=== PATIENT | male | born 1965 | race African-American/Black ===

== ENCOUNTER 2023-05-07 17:36 | Emergency (ER) | payer OTHER, SELFPAY ==
--- NOTE | ~2023-05-07 | CT_ITS ---
EXAMINATION: CT abdomen pelvis wo con DATE: 05/07/2023 18:49 INDICATION: Left flank pain TECHNIQUE: Computed tomography (CT) of the abdomen and pelvis was performed without intravenous contr ast. Automated exposure control and iterative reconstruction technique were employed. The dose-length product was 315.14 mGy-cm. COMPARISON: None FINDINGS: Mild dependent atelectasis in the bilateral lower lobes. Heart size is normal. No pericardial or pleu ral effusion. Liver, gallbladder, spleen, pancreas, bilateral adrenal glands and kidneys are normal. No urolithiasis. Moderate to large amount of stool throughout the colon with 7 similar ball of stool at rectum suggestive of constipation with fecal impaction. There is moderate colonic diverticulosis w ith a sigmoid predominance. There is no adjacent inflammatory change to suggest diverticulitis. Smal l bowel and appendix are normal. Bladder is normal. No free intraperitoneal gas or fluid. There is di ffuse mesenteric and body wall edema. No pathologically enlarged abdominal or pelvic lymphadenopathy. IMPRESSION: 1. Moderate to large amount of colonic stool 7 similar ball of stool at rectum suggestive of constipa tion with fecal impaction. 2. Nonspecific diffuse mild mesenteric and body wall edema. Reviewed, dictated and finalized at location A. IMPRESSION: 1. Moderate to large amount of colonic stool 7 similar ball of stool at rectum suggestive of constipation with fecal impaction. 2. Nonspecific diffuse mild mesenteric and body wall edema.
[2023-05-07 17:39] VITALS: BP 164/89; PULSE 78; RESP 16; TEMP 36.8; O2SAT 96
--- NOTE | 2023-05-07 18:09 | ED.BACK ---
HPI - Back Pain/Injury General Chief Complaint: Back Pain/Injury Stated Complaint: back pain Time Seen by Provider: 05/07/23 17:51 Source: patient Mode of arrival: ambulatory Limitations: no limitations History of Present Illness HPI Narrative: Patient is a 58 y/o male who presents to the ED with c/o L flank pain. Patient reports having pain in his left flank/lower back for the last few days. He denies any recent heavy lifting, strenuous activity, abnormal activity. Pain is worse with movement, twisting, sitting upright. He states the pain at times takes his breath away. He has not tried anything for the pain. He was seen at [facility] yesterday and had negative lumbar spine x-rays. He was prescribed Flexeril and lidocaine patches, but has not picked these up from the pharmacy. He denies radiation of the pain into his abdomen or down his leg. Denies nausea, vomiting, dysuria, hematuria, incontinence, fevers, SOB, numbness, tingling, saddle anesthesia. Denies history of kidney stones. Related Data Allergies Allergy/AdvReac Type Severity Reaction Status Date / Time No Known Allergies Allergy Verified 05/07/23 17:53 Review of Systems Review of Systems: CONSTITUTIONAL: Denies fever, chills, or sweats. CARDIOVASCULAR: Denies chest pain. RESPIRATORY: Denies dyspnea. GASTROINTESTINAL: Denies abdominal pain, nausea, vomiting, or diarrhea. GENITOURINARY: Denies dysuria or hematuria. SKIN: Denies rash or itching. MUSCULOSKELETAL: See HPI. NEUROLOGIC: Denies headache, numbness, or weakness. All systems reviewed & are unremarkable except as noted in HPI and below Exam Narrative: GENERAL: Well appearing, well-nourished, non-toxic, in no acute distress. HEAD: Normocephalic, atraumatic. NECK: Supple. No adenopathy, no masses. RESPIRATORY: Airway patent, respirations nonlabored. Clear to auscultation bilaterally, no rales, rhonchi, wheezing. No distress or splinting. CARDIOVASCULAR: Regular rate and rhythm without murmurs, rubs, or gallops. Radial pulses 2+ and equal bilaterally. ABDOMINAL: Soft, no tenderness throughout abdomen, nondistended, no hepatosplenomegaly. Normoactive BS. MUSCULOSKELETAL: Moves all extremities. Strength/ROM intact without gross deformities. No midline thoracic or lumbar spinal tenderness. TTP throughout L flank region/L lumbar paraspinal musculature. No palpable bony deformities along rib cage. SKIN: Warm, dry, normal color. No rashes. NEURO: A&O X3. Speech clear. Cranial nerves II-XII grossly intact. Steady gait. No ataxic movements. PSYCHIATRIC: Appropriate mood and affect. Normal interaction. Course Vital Signs Vital signs: Vital Signs Temperature 98.3 F 05/07/23 17:39 Pulse Rate 78 05/07/23 17:39 Respiratory Rate 16 05/07/23 17:39 Blood Pressure 164/89 H 05/07/23 17:39 Pulse Oximetry 96 05/07/23 17:39 Oxygen Delivery Room Air 05/07/23 17:39 Temperature 98.3 F 05/07/23 17:39 Pulse Rate 58 L 05/07/23 19:16 Respiratory Rate 18 05/07/23 19:16 Blood Pressure 180/109 H 05/07/23 19:16 Pulse Oximetry 100 05/07/23 19:16 Oxygen Delivery Room Air 05/07/23 17:39 MDM - Back Pain/Injury MDM Narrative Medical decision making narrative: Patient presented to ED with 2-day history of left flank pain. Patient has not tried anything for pain prior to arrival. Seen at outside facility yesterday and prescribed Flexeril however he did not pick these up from the pharmacy. No midline spinal tenderness, neurologic deficits, palpable spinal or bony deformities. CT abdomen pelvis obtained to rule out kidney stone, showing constipation with fecal impaction. No ureterolithiasis. Discussed imaging findings with patient. He reports his last BM was yesterday. Denies frequent issues with constipation. Discussed likelihood of musculoskeletal back pain and incidental finding of constipation. Discussed constipation management at home vs performing therapies her
[2023-05-07 19:16] VITALS: BP 180/109; PULSE 58; RESP 18; O2SAT 100
--- NOTE | 2023-05-07 19:17 | PC.NURSE ---
Assumed care of pt from MELANIE Correa at this time.
[2023-05-07] MEDS: ACETAMINOPHEN 500 MG TABLET 1000 MG PO (19:21)
[2023-05-07] MEDS: CYCLOBENZAPRINE HCL 5 MG TABLET PO (20:00)
[2023-05-07] MEDS: KETOROLAC 30 MG/ML VIAL (*BKC) IM (20:01)
[2023-05-07 20:04] LABS: Basophils Percent Auto 0.5 % (0.2-1.2); Eosinophils Absolute Auto 0.1 K/mm3 (0-0.3); Eosinophils Percent Auto 1.5 % (0-4.4); Hematocrit 33.2 % (42.0-52.0); Hemoglobin 10.6 g/dL (14.0-18.0); Immature Granulocyte Absolute 0.03 K/mm3 (0.00-0.031); Immature Granulocyte Percent A 0.4 % (0-0.5); Lymphocytes Percent Auto 18.7 % (18.3-44.2); Mean Corpuscular HGB Conc 31.9 g/dl (32-36); Mean Corpuscular Hemoglobin 28.8 pg (26-34); Mean Corpuscular Volume 90.2 fl (80-100); Mean Platelet Volume 9.6 fl (7.4-10.4); Monocytes Absolute Auto 0.8 K/mm3 (0.1-0.6); Neutrophils Absolute Auto 5.6 K/mm3 (1.3-6.7); Neutrophils Percent Auto 68.9 % (45.5-73.1); Platelet Count Result 304 k/mm3 (150-375); Red Blood Count 3.68 M/mm3 (4.6-6.20); Red Cell Distribution Width 13.4 % (11.5-14.5)
[2023-05-07 20:11] LABS: Appearance Urine Clear (Clear); Bacteria Urine None Seen /hpf; Bilirubin Urine Negative (Negative); Blood Urine Negative (Negative); Color Urine Yellow (Yellow); Glucose Urine UA Negative (Negative); Ketones Urine Negative (Negative); Leukocyte Esterase Ur Negative LEU/UL (Negative); Nitrate Urine Negative (Negative); Non Pathogenic Casts 0-2; Protein Urine 1+ mg/dL (Negative); RBC Urine 0-2 /hpf (0-2); Specific Grav Ur 1.021 (1.001-1.035); Squamous Epithelial Cell Urine None seen /hpf (Few); WBC Urine 0-5 /hpf; pH Urine 6.5 (5.0-9.0)
[2023-05-07 20:15] LABS: Alanine Aminotransferase 34 U/L (6-50); Albumin Level 3.9 g/dL (3.5-5.1); Alkaline Phosphatase 64 U/L (38-126); Anion Gap 6 mmol/L (8-16); Aspartate Amino Transferase 27 U/L (17-59); Bilirubin,Total 0.3 mg/dL (0.2-1.3); Blood Urea Nitrogen 31 mg/dL (9-20); Calcium 8.8 mg/dL (8.4-10.2); Carbon Dioxide 27 mmol/L (22-30); Chloride 108 mmol/L (98-107); Estimated CRCL calculation 36 ml/min; Estimated Glomerular Filt Rate 36; Glucose 81 mg/dL (65-110); Sodium 141 mmol/L (137-145)
--- NOTE | 2023-05-07 20:16 | PC.NURSE ---
This RN went into pt room to do Soap suds enema. When explaining procedure to pt he decided he did not want to have enema completed. This RN explained potential benefits to pt. Pt decided he would wait. This RN notified Yarely STEVE.
[2023-05-07 20:23] LABS: Add Urine Microscopic? YES
== END 2023-05-07 20:57 | disposition home or self-care (01) ==
PROVIDERS: Emergency Provider Physician Assistant
DX: S39.012A Strain of muscle, fascia and tendon of lower back, initial encounter (principal); K59.00 Constipation, unspecified; N18.9 Chronic kidney disease, unspecified; M54.6 Pain in thoracic spine; X58.XXXA Exposure to other specified factors, initial encounter
CPT/HCPCS: 36415; 74176; 80053; 81001; 85025; 96372; 99284; A9270; J1885

== ENCOUNTER 2023-05-19 12:30 | Observation (INO) | payer OTHER, SELFPAY ==
[2023-05-19] VITALS (9 sets, daily range): BP systolic 125–155; BP diastolic 88–103; PULSE 59–76; RESP 11–16; TEMP 36.4–36.5; O2SAT 98–100; BMI 21.2; BMI 21.3
--- NOTE | ~2023-05-19 | XR_ITS ---
XR chest 1V 05/19/2023 13:58 Indication: Syncope. Procedure: AP view of the chest Comparison: No prior studies for comparison. Findings: Borderline heart size. No focal air space disease, pulmonary edema, pleural effusion or mayo pected pneumothorax. No acute osseous abnormality. Impression: 1: No acute cardiopulmonary disease. Reviewed, dictated and finalized at location L. Impression: 1: No acute cardiopulmonary disease.
--- NOTE | ~2023-05-19 | US_ITS ---
EXAMINATION: US renal BI DATE: 05/20/2023 10:15 INDICATION: Increased creatinine. TECHNIQUE: Multiple ultrasound grayscale images of the kidneys were obtained. COMPARISON: CT abdomen and pelvis 05/07/2023 FINDINGS: The right kidney measures 9.9 x 4.2 x 5.6 cm. The left kidney measures 10.2 x 4.6 x 4.7 cm. The kidne ys demonstrate normal parenchymal echogenicity. There is no hydronephrosis. The bladder is normal. IMPRESSION: 1. Normal kidneys. No hydronephrosis. Reviewed, dictated and finalized at location E.
--- NOTE | ~2023-05-19 | CT_ITS ---
EXAMINATION: CTA chest PE protocol DATE: 05/19/2023 14:08 CDT INDICATION: Syncope. TECHNIQUE: Computed tomographic angiography (CTA) of the chest was performed with 100 mL Omnipaque-35 0 intravenous contrast. The dose-length product was 563.50 mGy-cm. Maximum intensity projection 3D-re constructions of the aorta and other arteries were constructed by the technologist on a separate work station. Automated exposure control and iterative reconstruction technique were employed. COMPARISON: None. FINDINGS: Study is technically adequate without evidence for pulmonary embolism. No evidence for aort ic dissection. No thoracic lymphadenopathy. No significant pleural or pericardial effusion. Heart siz e is normal. There is calcified granuloma in the left mid thorax. No endobronchial lesions. No pneumo thorax. There is dependent atelectasis. No focal pneumonia. Moderate thoracic spondylosis. IMPRESSION: 1. No acute cardiopulmonary disease. No evidence for pulmonary embolism. Reviewed, dictated and finalized at location L.
--- NOTE | ~2023-05-19 | XR_ITS ---
XR lumbar spine 2-3V 05/19/2023 13:58 Indication: Low back pain Procedure: 3 views lumbar spine Comparison: No prior studies for comparison. Findings: Vertebral body heights are maintained. No fracture, subluxation or dislocation. There is gr jami 1 degenerative spondylolisthesis at L4-5. There is mild facet hypertrophy at L4-5 and L5-S1. Impression: 1: Mild lumbar spondylosis with grade 1 degenerative spondylolisthesis at L4-5. Reviewed, dictated and finalized at location L. Impression: 1: Mild lumbar spondylosis with grade 1 degenerative spondylolisthesis at L4-5.
--- NOTE | ~2023-05-19 | MR_ITS ---
EXAMINATION: MR brain/brain stem wo/w con DATE: 05/21/2023 08:55 INDICATION: syncope, possible seizure TECHNIQUE: Magnetic resonance imaging (MRI) of the brain and brainstem was performed without and with 15 mL MultiHance intravenous contrast. Sequences included sagittal and axial T1-weighted SE, axial d iffusion-weighted FS EPI ASSET, axial T2*-weighted GRE, axial T2-weighted FLAIR Propeller, and axial T2-weighted Propeller. Postcontrast axial and coronal T1-weighted SE was obtained. Apparent diffusion coefficient (ADC) maps were created. COMPARISON: CT brain 05/19/2023. FINDINGS: No abnormal restricted diffusion to suggest acute ischemic infarct. No MRI evidence of hemorrhage or extra-axial collection. No suspicious foci of susceptibility to suggest prior intraparenchymal hemorr tito. Scattered foci of white matter hyperintensity, likely representing mild small vessel ischemic d isease. No evidence of advanced or lobar predominant parenchymal volume loss. The basilar cisterns ar e patent. Flow voids are preserved. Ethmoid and maxillary mucosal thickening. Small retention cyst/po lyp in the right maxillary sinus. Globes and orbital contents are within normal limits. IMPRESSION: No acute intracranial process. Reviewed, dictated and finalized at location K.
--- NOTE | ~2023-05-19 | CT_ITS ---
EXAMINATION: CT brain wo con DATE: 05/19/2023 13:50 INDICATION: Syncope. Head injury. TECHNIQUE: Computed tomography (CT) of the head was performed without intravenous contrast. The mA wa s adjusted according to patient size. Iterative reconstruction technique was employed. The dose-lengt h product was 605.33 mGy-cm. COMPARISON: None FINDINGS: There are scattered areas of low attenuation in the cerebral white matter. There is no intr acranial hemorrhage, acute infarction, or abnormal intracranial mass lesion. The ventricles are marlene l in size. There is mucosal thickening in the paranasal sinuses. The orbits are normal. The mastoid a ir cells are normal. IMPRESSION: 1. Moderate nonspecific cerebral white matter disease, which likely represents chronic small vessel i schemic disease. Reviewed, dictated and finalized at location E. IMPRESSION: 1. Moderate nonspecific cerebral white matter disease, which likely represents chronic small vessel ischemic disease.
--- NOTE | ~2023-05-19 | US_ITS ---
US venous doppler [facility] DATE: 05/21/2023 09:20 INDICATION: Positive d-dimer. TECHNIQUE: Real-time and color flow imaging and Doppler analysis of the veins of the lower extremitie s COMPARISON: None FINDINGS: The greater saphenous veins are patent. There is spontaneous and phasic flow and normal aug mentation and color flow signal and normal compression of the deep veins of both lower extremities. IMPRESSION: No evidence of deep venous thrombosis of the lower extremities Reviewed, dictated and finalized at Location A. Reviewed, dictated and finalized at location A.
--- NOTE | 2023-05-19 12:43 | ECG_ITS ---
Measurements Intervals [place] Rate: 64 P: 15 IN: 161 QRS: 24 QRSD: 89 T: 3 QT: 413 QTc: 429 Interpretive Statements SINUS RHYTHM EARLY REPOLARIZATION NO PREVIOUS ECG AVAILABLE FOR COMPARISON Electronically Signed On 05-19-2023 13:01:57 CDT by Aspen Teran M.D.
--- NOTE | 2023-05-19 12:44 | ED.SYNCOPE ---
HPI - Syncope General Chief Complaint: Syncope Stated Complaint: STEMI Time Seen by Provider: 05/19/23 12:42 History of Present Illness HPI narrative: 58-year-old male with a history of hypertension and coronary artery disease with a HI in 2013 presented emergency department for evaluation after having a syncopal episode. Patient was standing in line at a convenience store when he felt warm lightheaded and dizzy and had a syncopal episode. Bystanders state the patient was down for approximately 1 minute. Patient complained of head and tailbone pain. EKG obtained by EMS was initially concerning for STEMI by EMS and a code STEMI was called by EMS. Upon arrival to the ED our EKG appeared to be more early repolarization and patient was pain-free and had no associated shortness of breath. Patient does complain of head pain and tailbone pain but denies any other complaints. Patient denies any alcohol but states he does smoke marijuana. 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 Related Data Allergies Allergy/AdvReac Type Severity Reaction Status Date / Time No Known Allergies Allergy Verified 05/19/23 12:48 Review of Systems Review of Systems: All systems reviewed & are unremarkable except as noted in HPI and below PMFSH Social History Social History Alcohol intake: never Substance use: current Substance use type: marijuana Lack of Transportation: YES Lack of Food: Often True Current Housing: I Do Not Have Housing Concerned About Future Housing: YES Difficulty Paying Gas/Electric Bills: YES Difficulty Paying for Meds: No Currently Unemployed: No Education: High School Diploma/GED Difficulty w/ Childcare or Family Care: No Gender identity (if verbalized by the patient): Male Sexual Orientation (if Verbalized by the Patient): Straight or Heterosexual Spiritual care concerns: No Exam Narrative: APPEARANCE: Well appearing, no pain, no distress, well-nourished. HEAD: normocephalic, atraumatic. EYES: PERRLA/EOMI, conjunctivae clear. NOSE: Normal no drainage EARS:TMS clear with good light reflex. THROAT: Pharynx clear, no exudate. NECK: Supple. No adenopathy, no masses. RESPIRATORY: Airway patent, respirations nonlabored. Clear to auscultation bilaterally, no rales, rhonchi, wheezing. CARDIOVASCULAR: Regular rate and rhythm without murmurs rubs or gallops. ABDOMINAL: Soft, nontender, nondistended, normal bowel sounds MUSCULOSKELETAL: Moves all extremities. Strength/ROM intact, No edema, No calf tenderness. NEURO: Alert. Cranial nerves II through XII intact. Grossly intact SKIN: Warm, dry. Normal Color Course Course Emergency Course: 58-year-old male present emergency department for evaluation for a syncopal episode. Patient was initially thought to be a STEMI but EKG at our system showed no evidence of acute STEMI and the code STEMI was canceled. Patient was afebrile with no leukocytosis and a hemoglobin of 10.8. Patient's D-dimer was elevated. ABG showed no significant abnormalities. CMP showed no significant abnormalities. Urine had no evidence of infection. Patient was positive for amphetamines and for cannabinoids. CTA chest showed no evidence of pulmonary embolism. CT head was negative for acute intracranial abnormality. I discussed case with the hospitalist and patient was excepted for further evaluation of these frequent syncopal episodes Vital Signs Vital signs: Vital Signs Temperature 97.7 F 05/19/23 12:36 Pulse Rate 65 05/19/23 12:36 Respiratory Rate 11 L 05/19/23 12:36 Blood Pressure 127/93 H 05/19/23 12:36 Pulse Oximetry 100 05/19/23 12:36 Oxygen Delivery Room Air 05/19/23 12:36 Temperature 97.5 F L 05/19/23 20:05 Pulse Rate 72 05/19/23 20:05 Respiratory Rate 16 05/19/23 20:05 Blood Pressure 133/92 H 05/19/23 20:05 Pulse Oximetry 100 05/19/23 20:05 Oxygen Delivery Room Air 05/19/23 12
[2023-05-19 13:01] LABS: Basophils Percent Auto 0.5 % (0.2-1.2); Eosinophils Absolute Auto 0.2 K/mm3 (0-0.3); Eosinophils Percent Auto 2.4 % (0-4.4); Hematocrit 33.7 % (42.0-52.0); Hemoglobin 10.8 g/dL (14.0-18.0); Immature Granulocyte Absolute 0.02 K/mm3 (0.00-0.031); Immature Granulocyte Percent A 0.3 % (0-0.5); Lymphocytes Absolute Auto 1.35 K/mm3 (0.9-3.2); Mean Corpuscular Hemoglobin 28.3 pg (26-34); Mean Corpuscular Volume 88.2 fl (80-100); Mean Platelet Volume 9.9 fl (7.4-10.4); Monocytes Absolute Auto 0.5 K/mm3 (0.1-0.6); Monocytes Percent Auto 8.6 % (2.6-8.5); Neutrophils Absolute Auto 4.1 K/mm3 (1.3-6.7); Neutrophils Percent Auto 66.2 % (45.5-73.1); Platelet Count Result 241 k/mm3 (150-375); Red Blood Count 3.82 M/mm3 (4.6-6.20); Red Cell Distribution Width 13.8 % (11.5-14.5); White Blood Count 6.1 K/mm3 (4.5-10.0)
[2023-05-19 13:06] LABS: Alveolar/Arterial O2 Gradient 30.8 mmHg; Fractional Inspired Oxygen 21 %; HCO3 ABG 23.3 mEq/l (22.0-26.0); Oxygen Content ABG 14.9 %vol (16.0-22.0); Oxygen Saturation ABG 95.2 % (95.0-100.0); Oxyhemoglobin 92.4 % THb (90.0-100.0); PCO2 ABG 37.3 mmHg (35.0-45.0); PO2 ABG 74.3 mmHg (80.0-100.0); PO2 FiO2 Ratio Arterial Blood 3.54 %; Total Hemoglobin 11.4 g/dL (12.0-18.0); pH ABG 7.413 (7.350-7.450)
[2023-05-19 13:08] LABS: Site Drawn RIGHT RADIAL
[2023-05-19 13:09] LABS: Device ROOM AIR; Modified Allen's Test Pass
[2023-05-19 13:13] LABS: Prothrombin Time 13.8 Seconds (11.1-14.7)
[2023-05-19 13:14] LABS: Alanine Aminotransferase 23 U/L (6-50); Albumin Level 4.3 g/dL (3.5-5.1); Alkaline Phosphatase 62 U/L (38-126); Anion Gap 8 mmol/L (8-16); Aspartate Amino Transferase 24 U/L (17-59); Bilirubin,Total 0.5 mg/dL (0.2-1.3); Blood Urea Nitrogen 33 mg/dL (9-20); Calcium 9.1 mg/dL (8.4-10.2); Carbon Dioxide 24 mmol/L (22-30); Chloride 106 mmol/L (98-107); Estimated Glomerular Filt Rate 28; Glucose 78 mg/dL (65-110); Lactic Acid Reflex 1.1 mmol/L (0.7-2.0); Sodium 138 mmol/L (137-145)
[2023-05-19 13:15] LABS: Magnesium 2.1 mg/dL (1.6-2.3); Partial Thromboplastin Time 32.5 SECONDS (22.3-36.8)
[2023-05-19 13:17] LABS: D Dimer 2.29 ug/mL (<0.48)
[2023-05-19 13:26] LABS: NT Pro B Type Natriuretic Pept 153 pg/mL (19.9-100)
[2023-05-19 13:45] LABS: Thyroid Stimulating Hormone Reflex 0.779 uIU/mL (0.465-4.68)
[2023-05-19 14:27] LABS: Appearance Urine Clear (Clear); Bacteria Urine None Seen /hpf; Bilirubin Urine Negative (Negative); Blood Urine Negative (Negative); Color Urine Yellow (Yellow); Glucose Urine UA Negative (Negative); Ketones Urine Negative (Negative); Leukocyte Esterase Ur Negative LEU/UL (Negative); Nitrate Urine Negative (Negative); Non Pathogenic Casts 0-2; Protein Urine 1+ mg/dL (Negative); RBC Urine 0-2 /hpf (0-2); Squamous Epithelial Cell Urine None seen /hpf (Few); WBC Urine 0-5 /hpf; pH Urine 5.5 (5.0-9.0)
[2023-05-19 14:29] LABS: Add Urine Microscopic? YES
[2023-05-19] MEDS: SODIUM CHLORIDE 0.9% IV 500 ML 999 ML IV CONT (15:05)
[2023-05-19 15:15] LABS: Barbiturate Screen Urine Negative (Negative); Benzodiazepines Screen Urine Negative (Negative)
[2023-05-19 15:24] LABS: Cannabinoid Screen Urine Positive (Negative); Cocaine Screen Urine Negative (Negative); Methadone Screen Urine Negative (Negative); Opiate Screen Urine Negative (Negative); Phencyclidine Screen Urine Negative (Negative)
[2023-05-19 15:49] LABS: Amphetamine Screen Urine Positive (Negative)
[2023-05-19 16:26] LABS: Troponin I < 0.012 ng/mL (0.000-0.034)
--- NOTE | 2023-05-19 20:43 | ADMGEN ---
This patient, Lorenzo Ochoa, was admitted to IMU Room 201-01. Patient/family oriented to hospital policies and general routines including ID bracelet, bed and alarms, visiting hours, pain management, procedures, bathroom and other care routines, personal items, smoking policy, room service/diet, and visiting hours. Information on how to activate the Rapid Response Team has been discussed. Patient/Family are encouraged to report perceived risks to care and to ask questions if they do not understand what they are told or what they should do.
--- NOTE | 2023-05-19 22:58 | PM.IMHP ---
H&P: HPI History of Present Illness Date/Time: 05/19/23 22:58 Chief Complaint: Syncope Narrative: 58-year-old male presents here after syncopal event with past medical history of WI with 1 cardiac stent placed, CAD, substance abuse, CKD, and hypertension. Patient reports that he was at the grocery store today when he began to feel hot. Patient's last memory is going backwards. Syncopal event was witnessed by bystanders. +LOC -estimated by witnesses to have lasted approximately 1 minute. At EMS arrival patient was complaining of headache and tailbone pain. Initial EKG concerning for STEMI, code STEMI called by EMS prior to arrival. EKG was obtained promptly after arrival to the ED, gravity prospecting observer helper red EKG as early repolarization, not STEMI. Patient also denied chest pain, palpitations, shortness of breath. No recent illness. No complaints of nausea, vomiting, diarrhea, fever, or chills. Patient does report an increased amount of stress due to poor financial situation. Patient is currently living off of disability. His electric was caught off recently and water was cut off this morning. He does report a decrease in p.o. intake due to not being able to afford food. Last intake was yesterday evening at 6:00 p.m., nothing today. Discussed urine drug screen with patient. Patient sources marijuana use, but continues to deny and phentermine use. He denies history of ADHD or stimulant medication. Patient does have history of substance abuse and used to use meth, reports he has not used it in a long time. Patient also reporting depressed mood. Made statement that he wishes things would be over. He denies suicidal plan. He reports no access to firearms. Review of Systems Review of Systems: All systems reviewed & are unremarkable except as noted in HPI and below [facility] Past Medical History Medical History (Updated 05/20/23 @ 02:22 by Odette Vargas APRN) CAD (coronary artery disease) CKD (chronic kidney disease) Hypertension Myocardial infarction 2014 Polysubstance abuse Surgical History Surgical History (Updated 05/20/23 @ 02:19 by Odette Vargas APRN) History of heart artery stent History of inguinal hernia repair Right, mesh used Social History Social History (Updated 05/20/23 @ 02:37 by Odette E. Sam, WORKFORCE DEVELOPMENT ASSISTANT) Social History: Currently lives alone. Has alley tender. Surrogate decision maker: Steph alley tender. [phone]. If caregiver unavailable or on reachable, patient would like healthcare team to manage his care. Full code. Alcohol intake: never Substance use: current Substance use type: marijuana Lack of Transportation: YES Lack of Food: Often True Current Housing: I Do Not Have Housing Concerned About Future Housing: YES Difficulty Paying Gas/Electric Bills: YES Difficulty Paying for Meds: No Currently Unemployed: No Education: High School Diploma/GED Difficulty w/ Childcare or Family Care: No Gender identity (if verbalized by the patient): Male Sexual Orientation (if Verbalized by the Patient): Straight or Heterosexual Spiritual care concerns: No Meds Home Medications and Allergies Home Medications Medication Instructions Recorded Confirmed Type atorvastatin 80 mg tablet 80 mg PO HS 05/19/23 05/19/23 History calcitriol 0.25 mcg capsule 0.25 mcg PO DAILY 05/19/23 05/19/23 History clopidogrel 75 mg tablet 75 mg PO DAILY 05/19/23 05/19/23 History cyclobenzaprine 10 mg tablet 10 mg PO Q8H 05/19/23 05/19/23 History hydralazine 25 mg tablet 25 mg PO Q8H 05/19/23 05/19/23 History labetalol 200 mg tablet 200 mg PO BID 05/19/23 05/19/23 History lidocaine 5 % topical patch 1 patch transdermal DAILY 05/19/23 05/19/23 History losartan 25 mg tablet 25 mg PO DAILY 05/19/23 05/19/23 History nifedipine 90 mg tablet,extended 90 mg PO DAILY 05/19/23 05/19/23 History release 24 hr tamsulosin 0.4 mg capsule 0.4 mg PO DAILY 05/19/23 05/19/23 History Allergies A
[2023-05-20] VITALS (15 sets, daily range): BP systolic 142–158; BP diastolic 87–110; PULSE 65–93; RESP 16–18; TEMP 36.4–36.8; O2SAT 96–100
--- NOTE | 2023-05-20 | ECHO_ITS ---
Patient Info Name: Lorenzo Ochoa Age: 58 years : 1965 Gender: Male Ht: 74 in Wt: 166 lbs BSA: 1.98 m2 HR: 74 bpm BP: 158 / 110 mmHg Heart Rhythm: Sinus Rhythm Technical Quality: Good Exam Date: 05/20/2023 10:15 AM Exam Location: [facility] Pulmonary Patient Status: Inpatient Admit Date: 05/19/2023 Staff Ordering Physician: Alan Mejia MD Labor Relations Supervisor: Kim Mckeon RDCS Attending Provider: Alan Mejia MD Exam Type: CA echo doppler color flow Study Info Indications R55 - Syncope and collapse Complete two-dimensional, color flow and Doppler transthoracic echocardiogram is performed. Summary 1. Complete two-dimensional, color flow and Doppler transthoracic echocardiogram is performed. 2. Severe concentric left ventricular hypertrophy with vigorous systolic function and grade 1 diastolic noncompliance. 3. No significant valvular dysfunction identified. Left Ventricle Left ventricular chamber dimension is normal. Left ventricular systolic function is normal, estimated at 65-70%. There is severe concentric increased left ventricular wall thickness. The left ventricular diastolic function is grade I diastolic dysfunction. Right Ventricle Right ventricular chamber dimension is normal. Left Atria Left atrial chamber dimension is moderately enlarged. Right Atria Right atrial chamber dimension is normal. Aortic Valve The aortic valve is normal. Pulmonic Valve The pulmonic valve is normal. Mitral Valve The mitral valve has normal leaflets. Tricuspid Valve The tricuspid valve leaflets are normal. There is trace tricuspid valve regurgitation. Pericardium/Pleural The pericardium appears normal. Aorta The aortic root size at the sinus of Valsalva is normal. Left Ventricular Outflow Tract Name Value Normal LVOT 2D LVOT Diameter 2.1 cm LVOT Doppler LVOT Peak Gradient 6 mmHg LVOT Mean Gradient 3 mmHg LVOT VTI 20 cm LVOT VTI/AV VTI Ratio 0.8 LVOT Stroke Volume 67 ml LVOT CO 4.8 l/min LVOT CI 2.4 l/min/m2 Pulmonic Valve Name Value Normal RVOT Doppler RVOT Peak Gradient 2 mmHg PV Doppler PV Peak Gradient 5 mmHg Mitral Valve Name Value Normal MV Doppler MV Decel [place] 442 cm/s2 MV PHT 56 ms MV Area (PHT) 3.9 cm2 4.0-5.0 MV Diastolic Function
[2023-05-20] MEDS: ACETAMINOPHEN 325 MG TABLET 650 MG PO ×2 (00:34→08:33)
[2023-05-20] MEDS: hydrALAZINE HCL 25 MG TABLET PO ×4 (00:34→16:52)
[2023-05-20] MEDS: LACTATED RINGERS 1,000 ML 100 ML IV CONT ×3 (00:35→20:33)
[2023-05-20 04:41] LABS: Hematocrit 33.8 % (42.0-52.0); Hemoglobin 10.9 g/dL (14.0-18.0); Mean Corpuscular HGB Conc 32.2 g/dl (32-36); Mean Corpuscular Hemoglobin 28.2 pg (26-34); Mean Corpuscular Volume 87.6 fl (80-100); Mean Platelet Volume 9.9 fl (7.4-10.4); Platelet Count Result 239 k/mm3 (150-375); Red Blood Count 3.86 M/mm3 (4.6-6.20); Red Cell Distribution Width 13.8 % (11.5-14.5); White Blood Count 7.1 K/mm3 (4.5-10.0)
[2023-05-20 05:00] LABS: Anion Gap 7 mmol/L (8-16); Blood Urea Nitrogen 28 mg/dL (9-20); Carbon Dioxide 25 mmol/L (22-30); Chloride 105 mmol/L (98-107); Estimated CRCL calculation 36 ml/min; Estimated Glomerular Filt Rate 38; Glucose 102 mg/dL (65-110); Potassium 3.8 mmol/L (3.4-5.0); Sodium 137 mmol/L (137-145)
[2023-05-20 05:06] LABS: Iron 44 ug/dL (49-181)
[2023-05-20 05:16] LABS: Percent Iron Saturation 15 % (20-50)
[2023-05-20 06:06] LABS: Folic Acid 6.8 ng/mL (2.76->20)
[2023-05-20] MEDS: NIFEdipine 30 MG TAB.ER.24 90 MG PO (06:33)
[2023-05-20] MEDS: CLOPIDOGREL BISULFATE 75 MG TABLET PO (08:31)
[2023-05-20] MEDS: calcitrioL 0.25 MCG CAPSULE PO (08:31)
[2023-05-20] MEDS: TAMSULOSIN HCL 0.4 MG CAPSULE PO (08:31)
[2023-05-20] MEDS: LIDOCAINE 5% PATCH 1 PATCH TRANSDERM (08:31)
[2023-05-20] MEDS: ENOXAPARIN 30 MG/0.3 ML SYRINGE SUB-Q (08:31)
[2023-05-20] MEDS: LOSARTAN POTASSIUM 25 MG TABLET PO (09:21)
[2023-05-20] MEDS: LABETALOL HCL 100 MG TABLET 200 MG PO (09:21)
--- NOTE | 2023-05-20 11:16 | PC.NURSE ---
This patient, Lorenzo Ochoa, was transferred to [[id number] ] on 05/20/23 at 1115. Personal belongings sent with patient. Report given to [ Bárbara]. Appropriate documentation sent with patient.
--- NOTE | 2023-05-20 17:03 | PM.IMPN ---
Progress Note: A&P Assessment and Plan (1) Syncope and collapse: Code(s): R55 - Syncope and collapse Status: Acute Assessment and Plan: Patient had syncopal episode and was 'shaking' when unresponsive. Notes do not verify this but consider seizures. He denies alcohol or drug use except for marijuana use. UDS positive for canniboids and amphetamines. he denies meth use. Tainted marijuana? Concern for STEMI but EKG showing NSR with early repolarization. CXR clear. CT brain showing moderate nonspecific cerebral white matter disease. Lumbar spine showing no fracture. DDimer was positive to 2.3. ABG normal. CTA chest negative for PE. BNP 153 and Trop negative x2. Not orthostatic. B12/Folate/TSH normal. Started on IV fluids. Consider cardiac dysrhythmia or new onset seizures. No symptoms of cardiac disease. Echo showing EF 65-70% with severe concentric LV wall thickness and Grade I diastolic dysfunction. Add seizure precautions. No driving for 6 months. Check MRI brain given the concern for seizure and the chronic CT scan findings. Check HIV, hepatitis given his hx of drug use (patient agreeable). Holding Flexeril. (2) Head injury: Qualifiers: Encounter type: initial encounter Qualified Code(s): S09.90XA - Unspecified injury of head, initial encounter Code(s): S09.90XA - Unspecified injury of head, initial encounter Status: Acute Assessment and Plan: Related to fall. CT showing no acute findings. Symptomatic care (3) CKD (chronic kidney disease): Qualifiers: Chronic kidney disease stage: stage 4 (severe) Qualified Code(s): N18.4 - Chronic kidney disease, stage 4 (severe) Code(s): N18.9 - Chronic kidney disease, unspecified Status: Acute Assessment and Plan: Cr was 2.3 earlier this month. Cr elevated at 2.8 but now down to 2.2 this morning with IV fluids. UA normal except for 1+ protein. Dehydrated causing the fall? Renal US normal. The diffuse body wall and mesenteric edema probably related to his kidney disease. CKD probably related to HTN but consider other etiologies. Check HIV, hepatitis and other testing. (4) Anemia: Qualifiers: Anemia type: unspecified type Qualified Code(s): D64.9 - Anemia, unspecified Code(s): D64.9 - Anemia, unspecified Status: Acute Assessment and Plan: Patient with mild anemia with Hgb 10 range. B12/Folate normal. Iron studies showing mild iron deficiency. Add oral iron. Guaiac stool. Add PPI (5) Hypertension: Qualifiers: Hypertension type: primary hypertension Qualified Code(s): I10 - Essential (primary) hypertension Code(s): I10 - Essential (primary) hypertension Status: Acute Assessment and Plan: BP elevated on admission and has remained elevated since. Patient reported to others that he takes all of his medication t.i.d. Syncope related to HoTN from taking home medications incorrectly? He states to me that he only takes the 'H medication' 3x/day. He has been continued on nifedipine, losartan, labetalol and hydralazine here. Monitor for now back on his medications. Plan Disability: Currently lives on disability. Electricity and water shut off recently. Care coordination consulted CAD: stable. Continue Atorvastatin, Plavix BPH: Continue Flomax Constipation: In the ED for back pain on 05/[address] A/P performed showing moderate to large amount of colonic stool with fecal impaction. Incidental findings of nonspecific diffuse mild mesenteric and body wall edema. Add Miralax Diet: Heart healthy DVT Prophylaxis: SCDs, Lovenox Code Status: Full code Subjective Date/time seen: 05/20/23 17:03 Interval history: 58yo male with CAD here for syncopal episode. He states it was sudden onset of feeling warm and then falling. His buttuck and back of his head still hurts. He had been eating okay prior to the event. He was told he was shaking w
[2023-05-20] MEDS: PANTOPRAZOLE 40 MG TABLET PO (20:33)
[2023-05-20] MEDS: polyethylene glycoL 3350 17 GM POWD.PACK PO (20:34)
[2023-05-20] MEDS: ATORVASTATIN 40 MG TABLET 80 MG PO (21:00)
[2023-05-21] VITALS (10 sets, daily range): BP systolic 147–168; BP diastolic 90–110; PULSE 64–84; RESP 16–18; TEMP 36.5–36.8; O2SAT 100
[2023-05-21] MEDS: LABETALOL HCL 100 MG TABLET 200 MG PO ×2 (01:20→09:33)
[2023-05-21 04:20] LABS: Creatinine Urine 48.8 mg/dL; Total Protein Urine Random 25 mg/dL; Ur Ttl Prot Creatinine Ratio 0.51 mg/mg (0-0.20)
[2023-05-21 04:29] LABS: Eosinophil Urine None Seen % (None Seen); Urine Eos QC 2nd Tech Confirmed
[2023-05-21 04:37] LABS: Sodium Urine Random 154 meq/L
[2023-05-21] MEDS: hydrALAZINE HCL 25 MG TABLET PO ×2 (05:57→13:35)
[2023-05-21 07:20] LABS: Complement C3 102 mg/dL (88-165)
[2023-05-21 07:28] LABS: Albumin Level 4.1 g/dL (3.5-5.1); Anion Gap 6 mmol/L (8-16); Blood Urea Nitrogen 26 mg/dL (9-20); CRP 0.5 mg/dL (<1.0); Calcium 9.4 mg/dL (8.4-10.2); Carbon Dioxide 24 mmol/L (22-30); Chloride 104 mmol/L (98-107); Creatine Kinase 100 U/L (55-170); Estimated CRCL calculation 35 ml/min; Estimated Glomerular Filt Rate 38; Glucose 97 mg/dL (65-110); Phosphorus 3.3 mg/dL (2.5-4.5); Sodium 134 mmol/L (137-145)
[2023-05-21 07:31] LABS: Potassium 4.3 mmol/L (3.4-5.0)
[2023-05-21 07:52] LABS: HIV 1/2 Ab P24 Ag Result Negative (Negative)
[2023-05-21 08:53] LABS: Hepatitis B Surface Antigen Negative (Negative)
[2023-05-21 09:11] LABS: Hepatitis B Surface Anti Res Negative; Hepatitis C Virus Antibody Negative (Negative)
[2023-05-21] MEDS: CLOPIDOGREL BISULFATE 75 MG TABLET PO (09:33)
[2023-05-21] MEDS: PANTOPRAZOLE 40 MG TABLET PO (09:33)
[2023-05-21] MEDS: NIFEdipine 30 MG TAB.ER.24 90 MG PO (09:33)
[2023-05-21] MEDS: FERROUS SULFATE 325 MG TABLET DR PO (09:34)
[2023-05-21] MEDS: TAMSULOSIN HCL 0.4 MG CAPSULE PO (09:34)
[2023-05-21] MEDS: ACETAMINOPHEN 325 MG TABLET 650 MG PO (09:34)
[2023-05-21] MEDS: calcitrioL 0.25 MCG CAPSULE PO (09:34)
[2023-05-21] MEDS: LOSARTAN POTASSIUM 25 MG TABLET PO (09:34)
[2023-05-21] MEDS: ENOXAPARIN 40 MG/0.4 ML SYRINGE SUB-Q (09:34)
[2023-05-21] MEDS: LIDOCAINE 5% PATCH 1 PATCH TRANSDERM (09:37)
[2023-05-21] MEDS: polyethylene glycoL 3350 17 GM POWD.PACK PO (09:37)
--- NOTE | 2023-05-21 15:57 | PM.DS ---
DS: Admitting Diagnosis Discharge Date 05/21/23 Admitting Diagnosis Syncope DS: Discharge Diagnosis Discharge Diagnosis (1) Syncope and collapse: Code(s): R55 - Syncope and collapse Status: Acute (2) Head injury: Qualifiers: Encounter type: initial encounter Qualified Code(s): S09.90XA - Unspecified injury of head, initial encounter Code(s): S09.90XA - Unspecified injury of head, initial encounter Status: Acute (3) CKD (chronic kidney disease): Qualifiers: Chronic kidney disease stage: stage 4 (severe) Qualified Code(s): N18.4 - Chronic kidney disease, stage 4 (severe) Code(s): N18.9 - Chronic kidney disease, unspecified Status: Acute (4) Anemia: Qualifiers: Anemia type: unspecified type Qualified Code(s): D64.9 - Anemia, unspecified Code(s): D64.9 - Anemia, unspecified Status: Acute (5) Hypertension: Qualifiers: Hypertension type: primary hypertension Qualified Code(s): I10 - Essential (primary) hypertension Code(s): I10 - Essential (primary) hypertension Status: Acute DS: Summary Hospital Course Reason for hospitalization: 58yo male with CAD here for syncopal episode. Please see H&P for details. Hospital Course: Patient had syncopal episode and was 'shaking' when unresponsive. Notes do not verify this but EMS notes not available; consider seizures. He denies alcohol or drug use except for marijuana use. UDS positive for canniboids and amphetamines. He denied meth use. Tainted marijuana? Concern for STEMI in the field but EKG showing NSR with early repolarization. CXR was clear. CT brain showing moderate nonspecific cerebral white matter disease. Lumbar spine showing no fracture. DDimer was positive to 2.3. ABG normal. CTA chest negative for PE. BNP 153 and Trop negative x2. Not orthostatic. B12/Folate/TSH normal. LE venous doppler negative for DVT. HIV and Hepatitis panel negative. Started on IV fluids. Consider cardiac dysrhythmia but no findings on telemetry and no symptoms of cardiac disease. Echo showing EF 65-70% with severe concentric LV wall thickness and Grade I diastolic dysfunction. Consider new onset seizures. MR brain showing no acute findings. Seizure precautions added. No driving for 6 months. Cr was 2.3 earlier this month. Cr elevated at 2.8 but now down to 2.2 with IV fluids. UA normal except for 1+ protein. Dehydrated causing the syncope? Renal US normal.?CKD probably related to HTN but we considered other etiologies. Patient with mild anemia with Hgb 10 range. B12/Folate normal. Iron studies showing mild iron deficiency. Added oral iron. BP elevated on admission and has remained mild elevated at times.? Patient reported to others that he takes all of his medication incorrectly so consider that the syncope related to HoTN from taking home medications incorrectly?? He has been continued on nifedipine, losartan, labetalol and hydralazine here. Patient on disability. Electricity and water shut off recently. Care coordination consulted and patient assisted with how to handle these issues. In the ED for back pain on 05/[address] A/P performed showing moderate to large amount of colonic stool with fecal impaction. Incidental findings of nonspecific diffuse mild mesenteric and body wall edema probably related to his renal failure. We added Miralax. He overall did well and was able to be discharged home on 05/21/23. Status at Discharge Cognitive/behavioral status at discharge: stable Time Spent with Patient Time attestation: Total time spent providing and/or coordinating discharge services: 36 minutes Time spent: Greater than 30 minutes Exam Narrative: AF 97.7 147/90 78 16 100% ra Gen - NARD Chest - CTA bilaterally, nml RR CV - RRR S1/S2. Tele showing no dysrhythmias Abd - Soft, NT/ND, Positive BS Ext - No pedal edema. Neuro - Alert and oriented. Nonfocal exam. Psych - Nml mo
[2023-05-23 05:59] LABS: Rapid Plasma Reagin Non-Reactive (NonReactive)
[2023-05-24 14:45] LABS: Albumin 3.8 g/dL (3.8-4.8); Alpha 1 Globulin 0.3 g/dL (0.2-0.3); Alpha 2 Globulin 0.6 g/dL (0.5-0.9); Beta 1 Globulin 0.4 g/dL (0.4-0.6); Gamma Globulin 1.3 g/dL (0.8-1.7); Protein, Total 6.7 g/dL (6.1-8.1)
[2023-05-25 18:11] LABS: Complement Total CH50 >60 U/mL (31-60)
[2023-05-26 04:59] LABS: Hepatitis B Core Ab Total Nonreactive (Nonreactive)
[2023-05-27 01:23] LABS: Creatinine, Random Urine 49 mg/dL (20-320); Total Protein/Creatinine Ratio 429 mg/g creat (25-148)
--- NOTE | 2023-05-31 10:07 | PC.NURSE ---
JOHN, DNA (ds), Hep B core, SPEP, UPEP, and RPR all are WNL and or negative.
== END 2023-05-21 17:30 | disposition home or self-care (01) ==
LOC: ANHED 15:57 → ANHIMU 21:12 → ANH3MEDSUR 05-21 16:09 → ANHIMU 05-24 09:55
PROVIDERS: Student in an Organized Health Care Education/Training Program; Admitting Provider Internal Medicine; Emergency Provider Emergency Medicine; Visit Provider Internal Medicine
DX: R55 Syncope and collapse (principal); S09.90XA Unspecified injury of head, initial encounter; R51.9 Headache, unspecified; M53.3 Sacrococcygeal disorders, not elsewhere classified; I12.9 Hypertensive chronic kidney disease with stage 1 through stage 4 chronic kidney disease, or unspecified chronic kidney disease; N18.4 Chronic kidney disease, stage 4 (severe); I25.10 Atherosclerotic heart disease of native coronary artery without angina pectoris; Z11.4 Encounter for screening for human immunodeficiency virus [HIV]; Z95.5 Presence of coronary angioplasty implant and graft; I25.2 Old myocardial infarction; F15.10 Other stimulant abuse, uncomplicated; F12.90 Cannabis use, unspecified, uncomplicated; R79.1 Abnormal coagulation profile; D64.9 Anemia, unspecified; R90.82 White matter disease, unspecified; M43.16 Spondylolisthesis, lumbar region; I49.49 Other premature depolarization; Z79.02 Long term (current) use of antithrombotics/antiplatelets; Z79.899 Other long term (current) drug therapy
CPT/HCPCS: 36415; 36600; 70450; 70553; 71045; 71275; 72100; 76775; 80048; 80053; 80069; 80307; 81001; 82550; 82570; 82607; 82728; 82746; 82805; 83540; 83550; 83605; 83735; 83880; 84155; 84156; 84165; 84166; 84300; 84443; 84484; 85025; 85027; 85380; 85610; 85730; 85999; 86038; 86140; 86160; 86162; 86225; 86592; 86703; 86704; 86706; 86803; 87340; 93005; 93306; 93970; 96360; 96361; 96372; 99285; A9270; A9577; G0378; G0379; G0432; J1650; J7040; J7120; Q9967